=== PATIENT | female | born 1955 | race Caucasian/White ===

== ENCOUNTER 2017-11-19 12:47 | Inpatient (IN) ==
[~2017-11-19 12:47] MED LIST: Ketorolac Inj 30 MG/ML (IVP) Vial IV.PUSH ONE; Lidocaine PF 1% Inj 5 ML Syringe INFILTRATN ONE
[2017-11-19] MEDS ORDERED: Chlorhexidine Gluconate 2% 1 Pack (2 Cloths) TOPICAL SCH (13:30)
[2017-11-19] MEDS ORDERED: Metoprolol Tartrate 25 MG Tablet PO SCH (13:30)
[2017-11-19] MEDS ORDERED: ceFAZolin 2 GM Premix Inj 2 GM/100 ML BAG IV.SIG ONE (13:35)
[2017-11-19] MEDS ORDERED: Sodium Chlor 0.9% Inj 500 ML IV.SIG SCH (14:00)
[2017-11-19] MEDS ORDERED: ceFAZolin 2 GM/NS 100 ML IV IV.SIG SCH ×2 (14:00)
[2017-11-19] MEDS ORDERED: Bupivacaine/Epinephrine PF Inj 0.25% 10 ML Vial ONE (14:15)
[2017-11-19] MEDS ORDERED: Post-op Orders (for Pharmacy) OTHER ONE (16:59)
[2017-11-19] MEDS ORDERED: Bisacodyl 10 MG Supp RECTAL PRN (16:59)
[2017-11-19] MEDS ORDERED: Promethazine 25 MG Supp RECTAL PRN (16:59)
[2017-11-19] MEDS ORDERED: Naloxone Inj 0.4 MG/ML Vial IV.PUSH PRN (16:59)
[2017-11-19] MEDS ORDERED: Ketorolac Inj 30 MG/ML (IVP) Vial IV.PUSH PRN (17:01)
[2017-11-19] MEDS ORDERED: fentaNYL Citrate Inj 100 MCG/2 ML Ampul ONE (17:02)
[2017-11-19] MEDS ORDERED: *morphine SULFATE 4 MG/ML PERIprocedure ONLY ONE (17:29)
[2017-11-19] MEDS ORDERED: Morphine Inj 4 MG/ML Vial IV.PUSH PRN (17:45)
--- NOTE | 2017-11-19 18:11 | MP ---
cc: José Miguel Mendoza MD DATE OF OPERATION: 11/19/2017 PREOPERATIVE DIAGNOSIS: Chronic sigmoid diverticulitis. POSTOPERATIVE DIAGNOSIS: Chronic sigmoid diverticulitis. PROCEDURE PERFORMED: Laparoscopic-assisted sigmoid colectomy. SURGEON: José Miguel Mendoza MD SERVER: Martin Spence MD ANESTHESIA: General endotracheal. COMPLICATIONS: None. ESTIMATED BLOOD LOSS: About 100 mL INDICATIONS FOR PROCEDURE: Ms. Amin is a pleasant 62-year-old female who has had multiple bouts of diverticulitis. She has had several requiring hospitalization up at [facility]. She was seen by Dr. Chappell who performed a colonoscopic exam. He noted a fairly inflamed strictured sigmoid colon. She was referred for surgical evaluation. The patient was seen in the office and offered elective laparoscopic-assisted sigmoid colectomy. Risks and benefits of the procedure were discussed with her and she was agreeable. DETAILS OF PROCEDURE: The patient was identified, brought to the operating room, placed supine on the operating table in [facility]. After adequate general endotracheal anesthesia was achieved, the abdomen and perineum were prepped and draped in a standard surgical fashion where a 0.25% Marcaine was injected in the lower midline. Lower midline incision was made from the umbilicus down to just above the pubis. Subcutaneous tissue was dissected with electrocautery Bovie. The fascia was then identified and divided sharply. Peritoneum was then identified and divided sharply. The abdominal cavity was then entered without difficulty. The GelPort was then inserted with the wound protector. The abdomen was insufflated to 15 mmHg using CO2 gas via a 5 mm port placed through the GelPort bluntly. The abdominal cavity was visualized with the laparoscope. Two 5 mm ports were placed, one in the right lower quadrant and one in the left lower quadrant under direct vision after anesthetizing the skin and subcutaneous tissue with 0.25% Marcaine. Attention was directed to the sigmoid colon where it was identified and seen densely adherent to the lateral left pelvic sidewall. It was noted to be thickened and inflamed. This was carefully and meticulously taken down off the lateral pelvic sidewall. The colon was densely adherent to the left ovary and tube, which were carefully dissected off. There appeared to be a contained rupture of a diverticulum adjacent to the ovary and tube and this was carefully dissected. The diverticulum was then closed, where it had ruptured with a 2-0 Vicryl Endoloop. Once we did this, we were able to free the sigmoid colon up completely. Sigmoid colon was then dissected down and palpated and found to be normal distal to this. We therefore went back and took down the white line of Toldt about midway up the abdominal wall on the left side. Once we did this, the site of normal colon was identified in the descending colon. This terminated the laparoscopic portion of the procedure as we had completely mobilized the colon laparoscopically. Next the GelPort was removed and colon was brought up into the surgical wound. The descending colon site was identified. There was no evidence of diverticula. It was then transected with a SUE 55. Once we did this, we then palpated the distal sigmoid colon. Distal sigmoid colon appeared normal and healthy. There were no gross diverticula and no thickening. A site was then selected and it was divided with the contour double-ended stapler. Once we did this, the mesentery was taken down with the Harmonic scalpel. The sigmoid colon was then excised. A short stitch was placed distal to josé miguel the distal margin. It was sent to pathology for analysis. Next, the pelvis was rinsed out with warm saline solution. The patient was noted to have a moderate-sized uterus, which was elevated up with a retractor. Attention was now directed to the anastomosis. Initially, we considered an EEA anastomosis. The descending colon was opened sharply and inspected. The lumen was quite small. We attempted to get a 25 EEA sizer and it would barely fit even with the lubrication water. We therefore selected a 25 EEA. A 25 EEA anvil was then inserted. A 2-0 Prolene pursestring suture was then placed around the anvil and it was tightened up. Attention was now directed to the distal sigmoid colon. Dr. Spence went below and performed rigid sigmoidoscopy. The patient had a very tortuous distal colon and it was very hard for him to get up to where we were with the rigid sigmoidoscope. Eventually, he was able to get up to the site where we had transected it with the contour. He then removed the rigid sigmoidoscope. He then attempted to get a rigid 25 EEA dilator up. He was unsuccessful in doing this. Because he could not get the EEA up to where we were, we felt trying to pass the EEA stapler would be pointless as the patient's colon would not allow it. We therefore terminated trying to do an EEA anastomosis. Attention was now directed to formation of a hand-sewn anastomosis. The Prolene and the anvil were removed from the descending colon. The sigmoid colon was brought up to the lateral pelvic sidewall and the 2 pieces fit together nicely with no tension whatsoever. A 2-layered handsewn anastomosis was accomplished first using 3-0 silks for the back row and then a 3-0 nylon continuous running in both directions, forming an end-to-end anastomosis. Once we did this, an anterior row of silks was placed. The anastomosis was palpated and found to be patent. The colon was then compressed proximally in the descending area. Dr. Spence then went below again and performed rigid sigmoidoscopy and insufflated the distal colon with air. We could see the anastomosis insufflate nicely and there was no evidence of an air leak when we held the anastomosis under water. The anastomosis and colon were squeezed several times and again no air leak was noted. At this point, Dr. Spence evacuated the air out of the distal colon. The abdominal cavity was then copiously irrigated with normal saline solution. The anastomosis was then placed along the lateral pelvic sidewall. The omentum was then placed over the top of the anastomosis between the anastomosis and the uterus. All laparotomy pads were then removed and the count was checked to make sure they were all removed. Count was correct. The omentum was placed over the entire small bowel. The midline wound was then closed with a #1 PDS in a continuous running fashion from above and below. The wound was copiously irrigated with normal saline solution. Subcutaneous tissue was closed with 3-0 Vicryl and the skin was closed with a skin stapling device. The patient tolerated the procedure well. Please note that Dr. Martin Spence was present and scrubbed for the entirety of the procedure. He assisted with the laparoscopic portion of procedure as we used 3 ports and unfortunately I only have two hands. Therefore, Dr. Spence performed a significant portion of the dissection using the Harmonic scalpel. His surgical expertise was medically necessary in order to safely perform the procedure. Dr. Spence also performed the rigid sigmoidoscopy. Please see his operative note for the details. José Miguel MD LADONNA Shepherd/sudeep , 05:12 PM , 05:25 PM
[2017-11-19] MEDS: Senna/Docusate Sodium 8.6/50 MG Tablet PO SCH (21:01)
--- NOTE | 2017-11-20 08:35 | P.PNGS ---
Subjective Interval history: Resting in bed; feels better after [place] given this morning at 0620 Physical Exam Vital signs: Vital Signs 11/19/17 13:45 11/19/17 17:03 11/19/17 17:15 Temperature 96.8 F L 98.5 F Pulse Rate 75 99 H 89 Respiratory Rate 16 20 14 Blood Pressure 135/78 128/62 123/58 L Pulse Oximetry 98 96 97 11/19/17 17:30 11/19/17 17:45 11/19/17 18:00 Temperature 98.5 F Pulse Rate 84 82 86 Respiratory Rate 11 L 17 13 Blood Pressure 116/58 L 115/59 L 104/55 L Pulse Oximetry 97 95 94 L 11/19/17 18:15 11/19/17 20:00 11/20/17 00:00 Temperature 97.5 F L 98.9 F Pulse Rate 84 76 80 Respiratory Rate 13 18 18 Blood Pressure 109/57 L 115/61 111/56 L Pulse Oximetry 96 95 95 11/20/17 04:00 Temperature 99 F Pulse Rate 84 Respiratory Rate 18 Blood Pressure 112/56 L Pulse Oximetry 94 L Intake & Output 11/19/17 11/20/17 11/20/17 18:59 06:59 18:59 Intake Total 1300 / 1300 1360 / 1360 Output Total 200 / 200 350 / 350 Balance 1100 / 1100 1010 / 1010 Weight 80.9 kg 82.2 kg Intake: IV 200 / 200 1000 / 1000 LR 1000 mL Inj 1,000 ML @ 30 1000 / 1000 mls/hr IV.SIG .Q24H [facility] Rx#: [id number] Ancef 2 GM Premix Inj 2 gm In 100 / 100 100 ml @ 0 mls/hr IV.SIG .STK- [facility] Rx#:[id number] Flagyl 500 MG Inj 100 ML @ 0 100 / 100 mls/hr IV.SIG .STK-[facility] Rx#: [id number] Oral 360 / 360 Anesthesia Amount 1100 / 1100 Output: Estimated Blood Loss 100 / 100 Urine Amount (Catheter) 100 / 100 350 / 350 Indwelling Urethral Catheter 100 / 100 350 / 350 Other: Weight On Admission 80.9 kg Narrative: Alert and awake Cardio: RRR Resp: CTAB Abd: soft; minimally tender; JEAN CLAUDE in place with good seal Boud[place]aux catheter in place - Urinary Catheter Management Indwelling Urethral Catheter Cath placed during this visit: yes Reason for continuing: Hourly intake/output Insertion date: 11/19/17 Insertion time: 14:11 Assessment and Plan - Assessment (1) Diverticulitis of sigmoid colon Code(s): K57.32 - Diverticulitis of large intestine without perforation or abscess without bleeding Status: Acute - Plan 62 year old female s/p sigmoid resection -Continue clear liquids---will advance as bowel function returns -Added IVF -OOB as tolerated -Pain control -Continue JEAN CLAUDE dressing -DC B[place]aux
[2017-11-20] MEDS: Senna/Docusate Sodium 8.6/50 MG Tablet PO SCH ×2 (09:27→21:57)
[2017-11-20 09:52] LABS: Hematocrit 41.8 % (35.0-46.0); Hemoglobin 13.8 gm/dL (11.6-15.3); Mean Corpuscular Hemoglobin 28.8 pg (27.0-34.0); Mean Corpuscular Volume 87.2 fL (80.0-100.0); Mean Platelet Volume 9.5 fL (7.0-11.0); Platelet Count 217 th/mm3 (150-450); Red Cell Distribution Width 14.2 % (11.6-17.2); White Blood Count 10.7 th/mm3 (4.0-11.0)
[2017-11-20 10:25] LABS: Calcium 8.6 mg/dL (8.5-10.1); Carbon Dioxide 25.9 meq/L (21.0-32.0); Potassium 3.5 meq/L (3.5-5.1)
--- NOTE | 2017-11-20 12:53 | P.OP ---
- Preoperative Diagnosis (1) Diverticulitis of sigmoid colon - Postoperative Diagnosis (1) Diverticulitis of sigmoid colon Date of procedure: 11/20/17 Procedure: Laparoscopic hand-assisted sigmoid resection by Dr. Gary Mendoza Rigid sigmoidoscopy by Dr. Martin Gupta Anesthesia: XAVIERA Surgeon: Martin Spence MD Estimated blood loss (mL): 25 Pathology: other (Sigmoid colon the pathology) Operation and Findings: Please refer to Dr. Gary Menodza's operative note for details of his portion of the procedure. Following resection of the sigmoid colon, I went below and performed a rigid sigmoidoscopy. A digital rectal examination was performed to ensure there was no obstruction. The rigid lighted sigmoidoscope was then placed into the anus into the distal rectum. Using insufflation the rigid sigmoidoscope was advanced to approximately 20 cm. There were no mucosal abnormalities. There was no evidence of obstruction. The patient ultimately underwent a handsewn colocolonic anastomosis. An end-to- end anastomotic stapler was not used. The patient tolerated this portion of the procedure without difficulty. Is no evidence of intraoperative complication. Again please refer to Dr. Gary Mendoza's operative note for details of the portion of the procedure prior to and following the rigid sigmoidoscopy.
[2017-11-20] MEDS: Sod Chloride 0.9% Inj 1,000 ML IV.CONT SCH ×2 (16:23→21:58)
[2017-11-21] MEDS: Sod Chloride 0.9% Inj 1,000 ML IV.CONT SCH (06:33)
--- NOTE | 2017-11-21 08:08 | P.PNGS ---
Subjective Patient reports: feels better, tolerating liquids well, flatus, no bowel movement Physical Exam Vital signs: Vital Signs 11/20/17 12:00 11/20/17 16:00 11/20/17 20:00 Temperature 98.3 F 98.3 F 99.2 F Pulse Rate 76 75 75 Respiratory Rate 18 18 18 Blood Pressure 111/59 L 115/56 L 131/61 Pulse Oximetry 97 98 95 11/21/17 00:00 Temperature 98.0 F Pulse Rate 72 Respiratory Rate 18 Blood Pressure 121/59 L Pulse Oximetry 96 Intake & Output 11/20/17 11/21/17 11/21/17 18:59 06:59 18:59 Intake Total 800 / 800 1000 / 1000 Output Total 2800 / 2800 Balance -2000 / -2000 1000 / 1000 Weight 82.2 kg Intake: IV 1000 / 1000 NS Inj 1,000 ML @ 100 mls/hr IV 1000 / 1000 .CONT .Q10H [facility] Rx#:[id number] Oral 800 / 800 Output: Urine 2800 / 2800 Other: # Voids 2 - Routine Abdominal Exam Present: soft, normoactive bowel sounds, surgical scars, wound - Urinary Catheter Management Indwelling Urethral Catheter Cath placed during this visit: yes Reason for continuing: Hourly intake/output Insertion date: 11/19/17 Insertion time: 14:11 Assessment and Plan - Assessment (1) Diverticulitis of sigmoid colon Code(s): K57.32 - Diverticulitis of large intestine without perforation or abscess without bleeding Status: Acute - Plan advance to full liquid diet HL IV IS
[2017-11-21] MEDS: Senna/Docusate Sodium 8.6/50 MG Tablet PO SCH ×2 (09:14→20:10)
--- NOTE | 2017-11-22 08:39 | P.DS ---
Date of admission: 11/19/17 16:59 Primary care physician: Titus Solomon MD Attending physician on discharge: Gary Mendoza Brief History from admission: s/p sigmoid resection. DS: Diagnosis - Discharge Diagnosis (1) Diverticulitis of sigmoid colon Status: Acute DS: Medications - Discharge Medications Prescriptions: hydrocodone-acetaminophen 1 tab PO Q4H PRN #10 tab PRN Reason: acute post op pain exception DS: Summary Hospital Course: This is a 62 year old female s/p sigmoid resection. Her diet was advanced as tolerated. Her pain was controlled using oral pain medications. She will follow up in the office as indicated on the DC summary. - Time Spent with Patient Total time spent providing and/or coordinating discharge services: Less than 30 minutes - Quality: VTE Deep Vein Thrombosis/Pulmonary Embolism Present on Admission: No Exam Vital signs: Vital Signs 11/21/17 12:00 11/21/17 14:34 11/21/17 16:00 Temperature 99.6 F 98.9 F Pulse Rate 88 90 Respiratory Rate 16 17 16 Blood Pressure 127/67 123/66 Pulse Oximetry 98 96 11/21/17 20:00 11/22/17 00:00 Temperature 99.1 F 97.8 F Pulse Rate 83 76 Respiratory Rate 18 18 Blood Pressure 135/63 129/74 Pulse Oximetry 97 97 Intake & Output 11/21/17 11/22/17 11/22/17 18:59 06:59 18:59 Intake Total 1740 / 1740 Output Total 4 / 4 Balance 1736 / 1736 Weight 82.4 kg Intake: IV 1000 / 1000 NS Inj 1,000 ML @ 100 mls/hr IV 1000 / 1000 .CONT .Q10H [facility] Rx#:[id number] Oral 740 / 740 Output: Urine 4 / 4 Other: # Voids 2 # Bowel Movements 2 Narrative: Alert and awake Abd: JEAN CLAUDE in place with good seal Results Procedures completed during hospitalization: sigmoid resection with primary anastomosis Completed studies during hospitalization: Pending at discharge 11/19/17 08:12 Surgical [PTH] Routine Discharge Plan - Discharge Disposition Patient Disposition: 01 Discharge Home - Discharge Condition Condition: Good - Discharge Order Discharge Orders: Discharge Order (Routine); Ordered 11/22/17 Ordered By: Catherine Bennett - Discharge Details Anticipated Discharge Date: 11/22/17 Discharge Comment: rx on chart - Physicians Team Primary Care Provider: Titus Solomon Attending Provider: Gary Mendoza - Rxs /Orders / Referrals /Forms Prescriptions: New hydrocodone-acetaminophen 5-325 mg Tablet 1 tab PO Q4H PRN (Reason: acute post op pain exception ) Qty: 10 RF: 0 Continue cholecalciferol (vitamin D3) [Vitamin D3] 1,000 unit Capsule 1,000 unit PO DAILY levothyroxine 50 mcg Tablet 40 mcg PO DAILY metformin 1,000 mg Tablet 1,000 mg PO BID multivit [id number] [Hair, Skin and Nails Advanced] 3.3 mg iron-25 mcg Tablet 1 tab PO DAILY pravastatin 40 mg Tablet 40 mg PO DAILY spironolactone 50 mg Tablet 50 mg PO BID Referrals: Titus Solomon MD [Primary Care Provider] - See Instructions (Follow up appt November 29 at 10:30am) Gary Mendoza MD [Physician] - See Instructions (Appt set for Nov 28 at 2:20PM ) - Discharge Instructions Patient Printed Instructions: Hydrocodone/Acetaminophen (By mouth), Regular Diet (DC), Acute Wound Care (DC), Laparoscopic Bowel Resection (DC)
[2017-11-22] MEDS: Senna/Docusate Sodium 8.6/50 MG Tablet PO SCH (09:08)
== END 2017-11-22 14:05 | disposition home or self-care (01) ==
LOC: HSDC 12:47 → EDSTATUS 13:30 → HSDI 16:59 → N07 18:41
PROVIDERS: ADMIT Surgery Trauma Surgery; ATTEND Surgery Trauma Surgery